=== PATIENT | female | born 1980 | race African-American/Black ===

== ENCOUNTER 2022-02-11 23:04 | Emergency (ER) | payer MEDICAID ==
[~2022-02-11] VITALS: Ht 167.6 cm; Wt 59.0 kg
[2022-02-12] MEDS ORDERED: ONDANSETRON HCL 4MG/2ML INJ IV STA (00:51)
[2022-02-12] MEDS ORDERED: MORPHINE SULFATE 4 MG/ML CPJ (NOT FOR IM USE) IV STA (00:51)
[2022-02-12] MEDS ORDERED: SODIUM CHLORIDE 0.9% 1,000 ML IV ONE (01:00)
[2022-02-12 01:20] LABS: BASOPHILS % 0.5 % (0.0-2.0); EOSINOPHILS % 0.4 % (0.0-5.0); HEMATOCRIT. 42.6 % (36.0-48.0); HEMOGLOBIN. 14.6 g/dL (12.0-16.0); LYMPHOCYTES % 17.3 % (20.0-50.0); MEAN CORPUSCULAR HEMOGLOBIN 32.9 pg (28.0-32.0); MEAN CORPUSCULAR VOLUME 96.3 fL (81.0-99.0); MEAN PLATELET VOLUME 7.7 fl (7.4-10.4); MONOCYTES % 4.8 % (2.0-8.0); PLATELET 291 x1000/uL (130-400); RED BLOOD CELL COUNT 4.43 mill/uL (4.2-5.4); RED CELL DISTRIBUTION WIDTH 13.9 % (11.6-14.6)
[2022-02-12 01:34] LABS: CHLORIDE 107 mEq/L (98-107)
[2022-02-12 01:48] LABS: HCG SCREEN NEGATIVE
[2022-02-12] MEDS ORDERED: IOHEXOL-300 100 ML BOTTLE ONE (03:55)
[2022-02-12] MEDS ORDERED: MORPHINE SULFATE 4 MG/ML CPJ (NOT FOR IM USE) IV ONE (09:30)
[2022-02-12 10:31] VITALS: BP 150/103
== END 2022-02-12 12:03 | disposition short-term general hospital (02) ==
LOC: ER 23:04
DX: S12.090A Other displaced fracture of first cervical vertebra, initial encounter for closed fracture (principal); S00.83XA Contusion of other part of head, initial encounter; I10 Essential (primary) hypertension; Z20.822 Contact with and (suspected) exposure to COVID-19; V49.49XA Driver injured in collision with other motor vehicles in traffic accident, initial encounter; Y93.89 Activity, other specified; Y92.488 Other paved roadways as the place of occurrence of the external cause
CPT/HCPCS: 36415; 70450; 70486; 71045; 72125; 74177; 80048; 84703; 85025; 86850; 86900; 86901; 87426; 96361; 96374; 96375; 96376; 99291; J2270; J2405; J7030; Q9967; L0172

== ENCOUNTER 2025-04-23 20:57 | Emergency (ER) | payer MEDICAID ==
[~2025-04-23] VITALS: Ht 167.6 cm; Wt 62.0 kg
[~2025-04-23 20:57] MED LIST: METH4TAB95 MT
[2025-04-23 21:08] VITALS: O2SAT 100
[2025-04-23 22:30] LABS: EOSINOPHILS % 0.4 % (0.0-5.0); HEMATOCRIT. 42.4 % (36.0-48.0); HEMOGLOBIN. 14.4 g/dL (12.0-16.0); LYMPHOCYTES % 27.9 % (20.0-50.0); MEAN CORPUSCULAR HEMOGLOBIN 32.5 pg (28.0-32.0); MEAN CORPUSCULAR HGB CONC 33.8 g/dL (31.0-37.0); MEAN CORPUSCULAR VOLUME 96.1 fL (81.0-99.0); NEUTROPHILS % 63.7 % (40.0-76.0); PLATELET 292 x1000/uL (130-400); RED BLOOD CELL COUNT 4.42 mill/uL (4.2-5.4); RED CELL DISTRIBUTION WIDTH 13.1 % (11.6-14.6); WHITE BLOOD COUNT 13.6 x1000/uL (4.5-11.0)
[2025-04-23 22:40] LABS: CHLORIDE 104 mEq/L (98-107); POTASSIUM 3.2 mEq/L (3.5-5.1); SODIUM 138 mEq/L (136-145)
[2025-04-23 22:41] LABS: CALCIUM 9.5 mg/dL (8.7-10.4); CARBON DIOXIDE 25 mEq/L (21-32)
[2025-04-23 22:46] LABS: CREATININE 0.8 mg/dL (0.6-1.0); GLUCOSE 81 mg/dL (70-105); UREA NITROGEN BLOOD 5 mg/dL (9-23)
[2025-04-23 23:10] LABS: B-HCG QUANTITATIVE 70536 mIU/mL (<6)
[2025-04-24 01:19] VITALS: BP 159/102; PULSE 69; RESP 20; TEMP 36.7; O2SAT 100
== END 2025-04-24 01:28 | disposition home or self-care (01) ==
LOC: ER 20:57
DX: O20.8 Other hemorrhage in early pregnancy (principal); O26.891 Other specified pregnancy related conditions, first trimester; R10.2 Pelvic and perineal pain; I10 Essential (primary) hypertension; Z79.899 Other long term (current) drug therapy; Z88.8 Allergy status to other drugs, medicaments and biological substances; Z3A.01 Less than 8 weeks gestation of pregnancy; Z98.890 Other specified postprocedural states
CPT/HCPCS: 36415; 76801; 80048; 84702; 85025; 99284

== ENCOUNTER 2025-05-28 16:51 | Emergency (ER) | payer MEDICAID ==
[~2025-05-28] VITALS: Ht 172.7 cm; Wt 70.0 kg
[2025-05-28 17:08] VITALS: O2SAT 100
[2025-05-28] MEDS ORDERED: LIDOCAINE HCL/EPINEPHRINE 1%-EPI 1:100,000 20ML VIAL INFIL ONE (21:30)
[2025-05-28] MEDS ORDERED: SULF1TAB48 MT (22:39)
[2025-05-28 23:28] VITALS: BP 113/76; PULSE 85; RESP 16; TEMP 37.2; O2SAT 99
== END 2025-05-28 23:29 | disposition home or self-care (01) ==
LOC: ER 16:51
DX: D36.7 Benign neoplasm of other specified sites (principal); I10 Essential (primary) hypertension; Z88.8 Allergy status to other drugs, medicaments and biological substances; Z79.899 Other long term (current) drug therapy
CPT/HCPCS: 99283; J2004; Z7610 ×2; 10060

== ENCOUNTER 2025-06-29 16:28 | Emergency (ER) | payer MEDICAID ==
[~2025-06-29] VITALS: Ht 172.7 cm; Wt 64.0 kg
[~2025-06-29 16:28] MED LIST changes: +SULF1TAB48 MT
[2025-06-29 16:33] VITALS: O2SAT 100
[2025-06-29 17:13] VITALS: TEMP 36.9
[2025-06-29] MEDS: SODIUM CHLORIDE 0.9% 1,000 ML IV ONE (18:17)
[2025-06-29 18:45] LABS: BASOPHILS % 0.3 % (0.0-2.0); EOSINOPHILS % 0.3 % (0.0-5.0); HEMATOCRIT. 24.2 % (36.0-48.0); HEMOGLOBIN. 8.1 g/dL (12.0-16.0); LYMPHOCYTES % 21.6 % (20.0-50.0); MEAN PLATELET VOLUME 7.7 fl (7.4-10.4); MONOCYTES % 4.7 % (2.0-8.0); NEUTROPHILS % 73.1 % (40.0-76.0); PLATELET 242 x1000/uL (130-400); RED BLOOD CELL COUNT 2.57 mill/uL (4.2-5.4); RED CELL DISTRIBUTION WIDTH 13.7 % (11.6-14.6)
[2025-06-29 18:57] LABS: INR 1.1
[2025-06-29 19:00] LABS: B-HCG QUANTITATIVE 3 mIU/mL (<6); CREATININE 0.8 mg/dL (0.6-1.0)
[2025-06-29 19:01] LABS: UREA NITROGEN BLOOD 11 mg/dL (9-23)
[2025-06-29 19:02] LABS: ASPARTATE AMINOTRANSFERASE 17 IU/L (<34)
[2025-06-29 19:03] LABS: BILIRUBIN DIRECT 0.2 mg/dL (<=3.0); BILIRUBIN TOTAL 0.5 mg/dL (0.1-1.0)
[2025-06-29 19:05] LABS: PROTEIN TOTAL 5.0 g/dL (6.0-8.3)
[2025-06-29 20:30] VITALS: BP 117/80; PULSE 66; RESP 18; O2SAT 100
== END 2025-06-29 20:53 | disposition home or self-care (01) ==
LOC: ER 16:28
DX: N93.8 Other specified abnormal uterine and vaginal bleeding (principal); I10 Essential (primary) hypertension; R10.2 Pelvic and perineal pain; Z88.8 Allergy status to other drugs, medicaments and biological substances; Z98.890 Other specified postprocedural states
CPT/HCPCS: 80076; 80048; 84702; 83735; 85025; 85610; 36415; 76830; 76856; 96360; 99284; J7030; Z7610